=== PATIENT | male | born 1985 | race Caucasian/White ===

== ENCOUNTER 2018-02-23 19:51 | Emergency (ER) | payer OTHER ==
[~2018-02-23] VITALS: Ht 172.7 cm; Wt 81.6 kg
[2018-02-23] MEDS ORDERED: metoprolol xl PO (20:03)
--- NOTE | 2018-02-23 20:09 | NUR ---
Pt ambulates to ER with steady gait with c/o headache that started this morning. Pt states he went to urgent care earlier for his headache but was told to come to ER due to blood pressure 170/100. BP in ER is 153/94. At this time, pt states headache is 2/10. AAOX4. Pt able to speak in complete sentences. Speech clear. Able to make needs known. Pt states he takes metoprolol & lipitor. Has Holter monitor in place and will follow up with cheese packer due to having palpitations about 1 month ago. Respirations even + unlabored.
--- NOTE | 2018-02-23 20:17 | NUR ---
Dr. Paul at bedside for MSE.
[2018-02-23 20:47] LABS: BASOPHILS # (AUTO) 0.1 K/uL (0.0-8.0); BASOPHILS % (AUTO) 0.5 % (0.0-2.0); EOSINOPHILS # (AUTO) 0.1 K/uL (0.0-0.7); EOSINOPHILS % (AUTO) 0.9 % (0.0-7.0); HEMATOCRIT 42.6 % (36.7-47.1); HEMOGLOBIN 15.1 g/dL (12.5-16.3); LYMPHOCYTES # (AUTO) 1.6 K/uL (20.0-40.0); MEAN CORPUSCULAR HEMOGLOBIN 30.8 uug (23.8-33.4); MEAN CORPUSCULAR HGB CONC 36 g/dL (32.5-36.3); MEAN CORPUSCULAR VOLUME 86.9 fL (73.0-96.2); MONOCYTES # (AUTO) 0.6 K/uL (2.0-10.0); MONOCYTES % (AUTO) 5.4 % (0.0-11.0); NEUTROPHILS # (AUTO) 8.5 K/uL (1.8-8.9); NEUTROPHILS % (AUTO) 78.2 % (38.5-71.5); PLATELET COUNT (AUTO) 183 K/uL (152-348); RED BLOOD CELL COUNT(AUTO) 4.91 MIL/uL (4.06-5.63); WHITE BLOOD COUNT (AUTO) 10.9 K/uL (3.6-10.2)
[2018-02-23 20:51] LABS: CARBON DIOXIDE 25 mmol/L (21-32); CHLORIDE 102 mmol/L (98-107); CREATININE 0.6 mg/dL (0.6-1.3); GLUCOSE 97 mg/dL (74-106); POTASSIUM 3.3 mmol/L (3.5-5.1); UREA NITROGEN, BLOOD 8 mg/dL (7-18)
[2018-02-23] MEDS ORDERED: POTASSIUM CHLORIDE 20 MEQ TAB.PRT.SR PO ONE (21:00)
[2018-02-23] MEDS ORDERED: POTASSIUM CHLORIDE 20 MEQ TAB.PRT.SR ONE (21:05)
--- NOTE | 2018-02-23 21:15 | NUR ---
Patient discharged to home in stable conditon. Written and verbal after care instructions given. Patient verbalizes understanding of instructions. Pt ambulated out of ER in steady gait. All belongings with pt. VSS. NAD noted.
[2018-02-23 21:17] VITALS: BP 123/85
== END 2018-02-23 21:19 | disposition home or self-care (01) ==
LOC: ER 20:00
DX: R51 Headache (principal); E87.6 Hypokalemia; I10 Essential (primary) hypertension; G89.29 Other chronic pain; M54.5 Low back pain; E78.5 Hyperlipidemia, unspecified; Z79.899 Other long term (current) drug therapy; Z87.891 Personal history of nicotine dependence
CPT/HCPCS: 36415; 70450; 85025; 93005; A4663

== ENCOUNTER 2018-09-18 02:13 | Emergency (ER) | payer OTHER ==
[~2018-09-18] VITALS: Ht 172.7 cm; Wt 81.6 kg
[~2018-09-18 02:13] MED LIST: metoprolol xl PO
--- NOTE | 2018-09-18 02:25 | NUR ---
Pt. ambulated into ED w/ c/o non-radiating chest tightness preventing him from sleep x 6 hours, denies SOB/BARBER/F/C/N/V/D, mother at bedside, bed in low position, placed on monitor, VSS,
--- NOTE | 2018-09-18 02:51 | NUR ---
Phleb. tech. at bedside for blood draw,
[2018-09-18 03:17] LABS: BASOPHILS # (AUTO) 0.1 K/uL (0.0-8.0); BASOPHILS % (AUTO) 0.7 % (0.0-2.0); EOSINOPHILS # (AUTO) 0.1 K/uL (0.0-0.7); EOSINOPHILS % (AUTO) 1.5 % (0.0-7.0); HEMOGLOBIN 14.4 g/dL (12.5-16.3); LYMPHOCYTES % (AUTO) 26.1 % (20.5-51.5); MEAN CORPUSCULAR HEMOGLOBIN 29.6 uug (23.8-33.4); MEAN CORPUSCULAR HGB CONC 34 g/dL (32.5-36.3); MEAN CORPUSCULAR VOLUME 86.2 fL (73.0-96.2); MONOCYTES # (AUTO) 0.5 K/uL (2.0-10.0); MONOCYTES % (AUTO) 6.6 % (0.0-11.0); NEUTROPHILS % (AUTO) 65.1 % (38.5-71.5); PLATELET COUNT (AUTO) 184 K/uL (152-348); RED BLOOD CELL COUNT(AUTO) 4.87 MIL/uL (4.06-5.63); WHITE BLOOD COUNT (AUTO) 7.7 K/uL (3.6-10.2)
[2018-09-18 03:22] LABS: CARBON DIOXIDE 26 mmol/L (21-32); CHLORIDE 104 mmol/L (98-107); CREATININE 0.6 mg/dL (0.6-1.3); GLUCOSE 105 mg/dL (74-106); POTASSIUM 3.8 mmol/L (3.5-5.1); UREA NITROGEN, BLOOD 9 mg/dL (7-18)
[2018-09-18 03:28] LABS: ALANINE AMINOTRANSFERASE 32 U/L (16-63); ALKALINE PHOSPHATASE 62 U/L (50-136); ASPARTATE AMINOTRANSFERASE 11 U/L (15-37); BILIRUBIN,DIRECT 0.1 mg/dL (0.0-0.2); BILIRUBIN,TOTAL 0.4 mg/dL (0.2-1.0); TOTAL PROTEIN, SERUM 7.6 g/dL (6.4-8.2)
--- NOTE | 2018-09-18 03:45 | NUR ---
Patient discharged to home in stable conditon. Written and verbal after care instructions given. Patient verbalizes understanding of instructions. Pt. d/c per MD order, d/c papers signed, all belongings w/ pt., ID band removed, ambulated offf unit w/ steady gait accompanied by mother, NADYA
== END 2018-09-18 03:47 | disposition home or self-care (01) ==
LOC: ER 02:15
DX: R53.1 Weakness (principal); F41.9 Anxiety disorder, unspecified; E03.9 Hypothyroidism, unspecified
CPT/HCPCS: 36415; 70030-TC; 84443; 85025; 93005; A4663

== ENCOUNTER 2018-10-12 20:02 | Emergency (ER) | payer OTHER ==
[~2018-10-12] VITALS: Ht 172.7 cm; Wt 81.6 kg
--- NOTE | 2018-10-12 20:16 | NUR ---
Dr. Grier in patients room at bedside.
[2018-10-12 20:44] LABS: CREATININE 0.7 mg/dL (0.6-1.3); MAGNESIUM 1.9 mg/dL (1.8-2.4); POTASSIUM 4.2 mmol/L (3.5-5.1)
--- NOTE | 2018-10-12 21:14 | NUR ---
Patient discharged to home in stable conditon. Written and verbal after care instructions given. Patient verbalizes understanding of instructions. patient self ambulatory with steady gait. patient belongings and exit care package taken home with patient. Denies any pain/distress.
[2018-10-12 21:18] VITALS: BP 116/81
== END 2018-10-12 21:13 | disposition home or self-care (01) ==
LOC: ER 20:02
DX: R00.2 Palpitations (principal); Z88.8 Allergy status to other drugs, medicaments and biological substances; Z79.899 Other long term (current) drug therapy
CPT/HCPCS: 36415; 83735; 93005; A4663

== ENCOUNTER 2018-10-18 21:20 | Emergency (ER) | payer OTHER ==
[~2018-10-18] VITALS: Ht 172.7 cm; Wt 81.6 kg
--- NOTE | 2018-10-18 21:35 | NUR ---
PATIENT WALKED IN WITH C/O CHEST PAIN, WEAKNESS AND FATIGUE. PT HAS H/O OF SVT AND IS SCHEDULED FOR ABLATION ON TUESDAY. PATIENT STATES NO CHEST PAIN NOW, BUT STATES THAT HE FEELS TIRED. PLACED PATIENT ION TELE, EKG DONE, GIVEN TO .
--- NOTE | 2018-10-18 21:42 | NUR ---
DR. HUNT AT BEDSIDE FOR MSE.
[2018-10-18] MEDS ORDERED: IV LACTATED RINGERS SOLUTION 1,000 ML IV STA (21:49)
[2018-10-18] MEDS ORDERED: GUAN1TAB PO (21:51)
--- NOTE | 2018-10-18 22:00 | NUR ---
PATIENT REFUSED TO HAVE IV PLACED AND CXR DONE, DR. HUNT AWARE.
[2018-10-18 22:04] LABS: BASOPHILS # (AUTO) 0.1 K/uL (0.0-8.0); BASOPHILS % (AUTO) 0.9 % (0.0-2.0); EOSINOPHILS # (AUTO) 0.1 K/uL (0.0-0.7); EOSINOPHILS % (AUTO) 1.1 % (0.0-7.0); HEMATOCRIT 40.9 % (36.7-47.1); HEMOGLOBIN 14.3 g/dL (12.5-16.3); LYMPHOCYTES % (AUTO) 21.3 % (20.5-51.5); MEAN CORPUSCULAR HEMOGLOBIN 29.8 uug (23.8-33.4); MEAN CORPUSCULAR HGB CONC 35 g/dL (32.5-36.3); MEAN CORPUSCULAR VOLUME 85.4 fL (73.0-96.2); MONOCYTES # (AUTO) 0.5 K/uL (2.0-10.0); MONOCYTES % (AUTO) 5.7 % (0.0-11.0); NEUTROPHILS # (AUTO) 6.8 K/uL (1.8-8.9); PLATELET COUNT (AUTO) 168 K/uL (152-348); RED BLOOD CELL COUNT(AUTO) 4.78 MIL/uL (4.06-5.63); WHITE BLOOD COUNT (AUTO) 9.5 K/uL (3.6-10.2)
[2018-10-18 22:15] LABS: CARBON DIOXIDE 25 mmol/L (21-32); CHLORIDE 105 mmol/L (98-107); CREATININE 0.6 mg/dL (0.6-1.3); GLUCOSE 115 mg/dL (74-106); POTASSIUM 3.8 mmol/L (3.5-5.1); UREA NITROGEN, BLOOD 10 mg/dL (7-18)
[2018-10-18 22:23] LABS: ALANINE AMINOTRANSFERASE 25 U/L (16-63); ALKALINE PHOSPHATASE 60 U/L (50-136); ASPARTATE AMINOTRANSFERASE 5 U/L (15-37); BILIRUBIN,DIRECT 0.1 mg/dL (0.0-0.2); BILIRUBIN,TOTAL 0.3 mg/dL (0.2-1.0); TOTAL PROTEIN, SERUM 7.3 g/dL (6.4-8.2)
[2018-10-18 22:34] LABS: THYROID STIMULATING HORMONE 1.726 mIU/mL (0.358-3.740)
--- NOTE | 2018-10-18 23:11 | NUR ---
Patient discharged to home in stable conditon. Written and verbal after care instructions given. Patient verbalizes understanding of instructions. PATIENT LEFT WITH STABLE GAIT.
[2018-10-18 23:12] VITALS: BP 130/87
== END 2018-10-18 23:14 | disposition home or self-care (01) ==
LOC: ER 21:22
DX: R07.9 Chest pain, unspecified (principal); R06.00 Dyspnea, unspecified; R42 Dizziness and giddiness; R53.1 Weakness; Z88.8 Allergy status to other drugs, medicaments and biological substances; Z79.899 Other long term (current) drug therapy
CPT/HCPCS: 36415; 70030-TC; 71045; 83735; 84443; 85025; 93005; A4663; J7120

== ENCOUNTER 2020-03-13 19:10 | Emergency (ER) | payer BC, MEDICAID, OTHER ==
[~2020-03-13] VITALS: Ht 172.7 cm; Wt 95.3 kg
[~2020-03-13 19:10] MED LIST changes: +GUAN1TAB PO
[2020-03-13] MEDS ORDERED: PROP10TA10 PO (19:21)
[2020-03-13] MEDS ORDERED: [UNRECOGNIZED DRUG - REMARK] (19:21)
[2020-03-13] MEDS ORDERED: BENZONATATE 100 MG CAPSULE PO ONE (20:00)
--- NOTE | 2020-03-13 20:00 | NUR ---
Dr. Grier at bedside for MSE.
[2020-03-13] MEDS ORDERED: BENZONATATE 100 MG CAPSULE ONE (20:33)
[2020-03-13 20:40] LABS: CREATININE 0.7 mg/dL (0.6-1.3); POTASSIUM 3.3 mmol/L (3.5-5.1)
[2020-03-13 20:45] LABS: BASOPHILS # (AUTO) 0.1 K/uL (0.0-8.0); BASOPHILS % (AUTO) 0.8 % (0.0-2.0); EOSINOPHILS # (AUTO) 0.1 K/uL (0.0-0.7); EOSINOPHILS % (AUTO) 1.5 % (0.0-7.0); HEMATOCRIT 43.5 % (36.7-47.1); HEMOGLOBIN 14.6 g/dL (12.5-16.3); LYMPHOCYTES # (AUTO) 1.8 K/uL (20.0-40.0); MEAN CORPUSCULAR HEMOGLOBIN 28.7 uug (23.8-33.4); MEAN CORPUSCULAR HGB CONC 34 g/dL (32.5-36.3); MEAN CORPUSCULAR VOLUME 85.1 fL (73.0-96.2); MONOCYTES # (AUTO) 0.6 K/uL (2.0-10.0); MONOCYTES % (AUTO) 6.8 % (0.0-11.0); NEUTROPHILS # (AUTO) 5.8 K/uL (1.8-8.9); NEUTROPHILS % (AUTO) 69.9 % (38.5-71.5); PLATELET COUNT (AUTO) 210 K/uL (152-348); RED BLOOD CELL COUNT(AUTO) 5.11 MIL/uL (4.06-5.63); WHITE BLOOD COUNT (AUTO) 8.4 K/uL (3.6-10.2)
[2020-03-13 20:53] LABS: BILIRUBIN,DIRECT 0.1 mg/dL (0.0-0.2); BILIRUBIN,TOTAL 0.6 mg/dL (0.2-1.0); TOTAL PROTEIN, SERUM 8.1 g/dL (6.4-8.2)
--- NOTE | 2020-03-14 00:13 | NUR ---
Patient discharged to home in stable condition. Written and verbal after care instructions given. Patient verbalizes understanding of instructions. Stressed follow up or return to ER for worsening s/s. Patient out of ER with steady gait, no acute signs of distress, VSS, all belongings taken, provided with copies of diagnostic and lab results.
[2020-03-14 00:15] VITALS: BP 135/68
[2020-03-14] MEDS ORDERED: BENZ-13 PO (23:22)
== END 2020-03-14 00:16 | disposition home or self-care (01) ==
LOC: ER 19:10
DX: U07.1 COVID-19 (principal); R07.9 Chest pain, unspecified; Z82.49 Family history of ischemic heart disease and other diseases of the circulatory system; E87.6 Hypokalemia; Z87.891 Personal history of nicotine dependence; R03.0 Elevated blood-pressure reading, without diagnosis of hypertension
CPT/HCPCS: 36415; 71045; 80048; 80076; 83880; 84484 ×2; 85025; 85379; 85730; 93005 ×2; 99285; U0003; 70030-TC; A4663

== ENCOUNTER 2020-03-14 10:52 | Emergency (ER) | payer BC ==
[~2020-03-14] VITALS: Ht 172.7 cm; Wt 95.3 kg
[~2020-03-14 10:52] MED LIST changes: -GUAN1TAB PO; +PROP10TA10 PO; +[UNRECOGNIZED DRUG - REMARK]; -metoprolol xl PO
--- NOTE | 2020-03-14 11:03 | NUR ---
Pt walked out of the ER, stated he's going to his car to get his cell phone.
--- NOTE | 2020-03-14 11:29 | NUR ---
PT RAMAKRISHNA, SAKSHI NOTIFIED.
[2020-03-14] MEDS ORDERED: BENZ-13 PO (23:22)
== END 2020-03-14 11:30 | disposition left against medical advice (07) ==
LOC: ER 10:52
DX: Z75.3 Unavailability and inaccessibility of health-care facilities (principal)
CPT/HCPCS: A4663; J7030

== ENCOUNTER 2020-03-14 22:56 | Emergency (ER) | payer BC ==
[~2020-03-14] VITALS: Ht 175.3 cm; Wt 104.3 kg
--- NOTE | 2020-03-14 23:20 | NUR ---
Physican is in room with patient conducting examination.
[2020-03-14] MEDS ORDERED: BENZ-13 PO (23:22)
[2020-03-15] MEDS ORDERED: predniSONE 20 MG TABLET PO ONE (00:30)
--- NOTE | 2020-03-15 00:30 | NUR ---
Patient discharged to home in stable condition. Written and verbal after care instructions given. Patient verbalizes understanding of instructions. Stressed follow up or return to ER for worsening s/s. Patient ambulated without difficulty, took all belongings.
[2020-03-15 01:02] VITALS: BP 138/80
== END 2020-03-15 00:30 | disposition home or self-care (01) ==
LOC: ER 22:59
DX: U07.1 COVID-19 (principal); J02.9 Acute pharyngitis, unspecified; Z87.891 Personal history of nicotine dependence
CPT/HCPCS: 71045; A4663